=== PATIENT | male | born 1945 | race Caucasian/White ===

== ENCOUNTER 2022-01-27 09:39 | Observation (INO) ==
[2022-01-27] MEDS ORDERED: Perflutren Lipid Microsphere 1.3 ML in 0.9 % Sodium Chloride 8.7 ML IVP PRN (15:41)
[2022-01-27] MEDS ORDERED: MOM Conc 10 ML UD.LIQ PO PRN (15:46)
[2022-01-27] MEDS ORDERED: Naloxone 0.4 MG/ML INJ IVP PRN (15:46)
[2022-01-27] MEDS ORDERED: Melatonin 3 MG TABLET PO PRN (15:46)
[2022-01-27] MEDS ORDERED: Ondansetron ODT 4 MG TAB.RAPDIS SL PRN (15:46)
[2022-01-27] MEDS: Gabapentin 400 MG CAPSULE PO SCH (20:02)
[2022-01-28 02:17] LABS: Basophils % 0.7 %; Eosinophils % 1.4 %; Hematocrit 38.7 % (37.5-50.1); Hemoglobin 13.2 g/dL (12.9-16.9); Immature Granulocytes % 0.7 % (0-4); Lymphocytes # 1.1 K/mcL (0.6-4.6); Lymphocytes % 38.8 %; Mean Corpuscular HGB Conc 34.1 g/dL (31.6-35.5); Mean Corpuscular Hemoglobin 32.2 pg (28.0-33.3); Mean Corpuscular Volume 94.4 fL (83.0-100.0); Mean Platelet Volume 9.4 fL (9.4-12.4); Monocytes # 0.3 K/mcL (0.0-1.3); Monocytes % 11.4 %; Neutrophils # 1.4 K/mcL (1.6-8.9); Platelet Count 205 K/mcL (140-400); Red Cell Distribution Width 14.5 % (11.5-14.5); White Blood Count 2.9 K/mcL (4.3-11.1)
[2022-01-28 02:36] LABS: Alanine Aminotransferase 21 Units/L (7-52); Albumin 3.7 g/dL (3.5-5.7); Albumin/Globulin Ratio 1.8 (1.1-2.2); Alkaline Phosphatase 57 Units/L (34-104); Aspartate Amino Transferase 18 Units/L (13-39); BUN/Creatinine Ratio 7 (6-26); Bilirubin,Total 1.1 mg/dL (0.3-1.0); Blood Urea Nitrogen 9 mg/dL (8-23); Carbon Dioxide 26 mEq/L (23-29); Chloride 105 mEq/L (98-107); Chol/HDL Ratio 3.2 (0-4.9); Cholesterol 92 mg/dL (< 200); Globulin 2.1 g/dL (2.4-3.5); Glucose 99 mg/dL (70-105); HDL Cholesterol 29 mg/dL (40-59); LDL Cholesterol,Calculated 37 mg/dL (< 100); Osmolality,Calculated 289 (280-300); Potassium 3.7 mEq/L (3.5-5.1); Sodium 140 mEq/L (136-145); Total Protein 5.8 g/dL (6.4-8.9); Triglycerides 128 mg/dL (< 150); eGFR For African Americans > 60 (> 60); eGFR For Non-African Americans 57 (> 60)
[2022-01-28] MEDS ORDERED: *HR* Enoxaparin 40 MG/0.4 ML SYRINGE SQ SCH (06:00)
[2022-01-28] MEDS: Gabapentin 400 MG CAPSULE PO SCH ×2 (07:45→16:18)
[2022-01-28] MEDS ORDERED: Aspirin Enteric Coated 81 MG Tablet PO SCH (09:00)
[2022-01-28 11:03] LABS: Chol/HDL Ratio 3.3 (0-4.9)
[2022-01-28 11:15] LABS: Thyroid Stimulating Hormone 1.799 mcIU/mL (0.340-5.600)
[2022-01-28 11:27] LABS: Folate 10.2 ng/mL (3.0-16.0)
[2022-01-28 11:30] LABS: Estimated Average Glucose 117 mg/dl; Hemoglobin A1C 5.7 %
[2022-01-28 15:16] VITALS: BP 153/74; PULSE 67; TEMP 98.2; O2SAT 95
== END 2022-01-28 17:00 | disposition home or self-care (01) ==
LOC: 3BNU → SUATTDRO 13:56
PROVIDERS: ADMIT Student in an Organized Health Care Education/Training Program; ATTEND Registered Nurse

== ENCOUNTER 2022-01-29 09:36 | Inpatient (IN) ==
[2022-01-29] MEDS ORDERED: Ondansetron ODT 4 MG TAB.RAPDIS SL PRN (15:10)
[2022-01-29] MEDS ORDERED: Naloxone 0.4 MG/ML INJ IVP PRN (15:10)
[2022-01-29] MEDS ORDERED: Melatonin 3 MG TABLET PO PRN (15:10)
[2022-01-29] MEDS: Gabapentin 300 MG CAPSULE PO SCH (20:27)
[2022-01-29] MEDS ORDERED: NON-FORMULARY MEDICATION 1 EACH EACH (Omega-3/Dha/Epa/Fish Oil [Fish Oil 1,000 Mg Softgel] PO SCH (21:00)
[2022-01-30 02:05] LABS: Basophils % 0.7 %; Hematocrit 41.6 % (37.5-50.1); Hemoglobin 14.1 g/dL (12.9-16.9); Immature Granulocytes % 0.5 % (0-4); Lymphocytes # 1.4 K/mcL (0.6-4.6); Lymphocytes % 34.4 %; Mean Corpuscular HGB Conc 33.9 g/dL (31.6-35.5); Mean Corpuscular Hemoglobin 32.2 pg (28.0-33.3); Mean Platelet Volume 9.2 fL (9.4-12.4); Monocytes # 0.5 K/mcL (0.0-1.3); Monocytes % 10.7 %; Neutrophils # 2.2 K/mcL (1.6-8.9); Platelet Count 230 K/mcL (140-400); Red Blood Count 4.38 M/mcL (4.19-5.50); Red Cell Distribution Width 14.3 % (11.5-14.5); Segmented Neutrophils % 52.7 %; White Blood Count 4.2 K/mcL (4.3-11.1)
[2022-01-30 02:26] LABS: BUN/Creatinine Ratio 13 (6-26); Blood Urea Nitrogen 15 mg/dL (8-23); Calcium 9.1 mg/dL (8.6-10.3); Carbon Dioxide 28 mEq/L (23-29); Chloride 104 mEq/L (98-107); Chol/HDL Ratio 3.8 (0-4.9); Cholesterol 117 mg/dL (< 200); Glucose 100 mg/dL (70-105); HDL Cholesterol 31 mg/dL (40-59); LDL Cholesterol,Calculated 49 mg/dL (< 100); Magnesium 1.9 mg/dL (1.6-2.6); Osmolality,Calculated 289 (280-300); Potassium 3.5 mEq/L (3.5-5.1); Sodium 139 mEq/L (136-145); Triglycerides 184 mg/dL (< 150); eGFR For African Americans > 60 (> 60); eGFR For Non-African Americans 60 (> 60)
[2022-01-30] MEDS: *HR* Enoxaparin 40 MG/0.4 ML SYRINGE SQ SCH (05:32)
[2022-01-30] MEDS: Gabapentin 300 MG CAPSULE PO SCH ×2 (08:18→20:09)
[2022-01-30] MEDS: allopurinoL 100 MG TABLET PO SCH (08:18)
[2022-01-30] MEDS: Aspirin Enteric Coated 81 MG Tablet PO SCH (08:19)
[2022-01-30] MEDS: Cyanocobalamin (B-12) 1,000 MCG TABLET PO SCH (08:19)
[2022-01-30] MEDS: Metoprolol XL (24 HR) Succ 50 MG TAB.ER.24H PO SCH ×2 (08:20→13:36)
[2022-01-31 01:11] LABS: Basophils % 1.2 %; Eosinophils % 0.9 %; Hematocrit 39.1 % (37.5-50.1); Hemoglobin 13.3 g/dL (12.9-16.9); Immature Granulocytes % 0.6 % (0-4); Lymphocytes # 1.1 K/mcL (0.6-4.6); Lymphocytes % 32.8 %; Mean Platelet Volume 9.2 fL (9.4-12.4); Monocytes # 0.5 K/mcL (0.0-1.3); Monocytes % 14.5 %; Neutrophils # 1.7 K/mcL (1.6-8.9); Platelet Count 223 K/mcL (140-400); Red Blood Count 4.16 M/mcL (4.19-5.50); Red Cell Distribution Width 14.1 % (11.5-14.5); White Blood Count 3.3 K/mcL (4.3-11.1)
[2022-01-31 01:32] LABS: BUN/Creatinine Ratio 11 (6-26); Blood Urea Nitrogen 14 mg/dL (8-23); Carbon Dioxide 27 mEq/L (23-29); Chloride 104 mEq/L (98-107); Glucose 101 mg/dL (70-105); Osmolality,Calculated 287 (280-300); Potassium 3.6 mEq/L (3.5-5.1); Sodium 138 mEq/L (136-145); eGFR For African Americans > 60 (> 60); eGFR For Non-African Americans 55 (> 60)
[2022-01-31] MEDS: *HR* Enoxaparin 40 MG/0.4 ML SYRINGE SQ SCH (05:48)
[2022-01-31] MEDS: Gabapentin 300 MG CAPSULE PO SCH ×2 (10:11→21:44)
[2022-01-31] MEDS: allopurinoL 100 MG TABLET PO SCH (10:11)
[2022-01-31] MEDS: Aspirin Enteric Coated 81 MG Tablet PO SCH (10:12)
[2022-01-31] MEDS: Metoprolol XL (24 HR) Succ 50 MG TAB.ER.24H PO SCH (10:12)
[2022-01-31] MEDS: Cyanocobalamin (B-12) 1,000 MCG TABLET PO SCH (10:12)
[2022-02-01] MEDS: *HR* Enoxaparin 40 MG/0.4 ML SYRINGE SQ SCH (05:43)
[2022-02-01 06:59] VITALS: BP 135/71; PULSE 63; TEMP 97.8; O2SAT 93
[2022-02-01] MEDS: Aspirin Enteric Coated 81 MG Tablet PO SCH (09:23)
[2022-02-01] MEDS: Cyanocobalamin (B-12) 1,000 MCG TABLET PO SCH (09:24)
[2022-02-01] MEDS: allopurinoL 100 MG TABLET PO SCH (09:24)
[2022-02-01] MEDS: Metoprolol XL (24 HR) Succ 50 MG TAB.ER.24H PO SCH (09:24)
[2022-02-01] MEDS: Gabapentin 300 MG CAPSULE PO SCH (09:24)
== END 2022-02-01 13:13 | disposition home or self-care (01) | DRG 149 ==
LOC: 3BNU → SUATTDRO 01-30 14:52
PROVIDERS: ADMIT Student in an Organized Health Care Education/Training Program; ATTEND Internal Medicine

== ENCOUNTER 2022-05-09 10:42 | Observation (INO) ==
[2022-05-09 11:52] LABS: Basophils % 0.5 %; Hematocrit 40.8 % (37.5-50.1); Hemoglobin 13.5 g/dL (12.9-16.9); Immature Granulocytes % 0.7 % (0-4); Lymphocytes # 0.9 K/mcL (0.6-4.6); Lymphocytes % 19.6 %; Mean Corpuscular HGB Conc 33.1 g/dL (31.6-35.5); Mean Corpuscular Hemoglobin 31.3 pg (28.0-33.3); Mean Corpuscular Volume 94.7 fL (83.0-100.0); Mean Platelet Volume 9.6 fL (9.4-12.4); Monocytes # 0.7 K/mcL (0.0-1.3); Monocytes % 15.5 %; Neutrophils # 2.8 K/mcL (1.6-8.9); Platelet Count 222 K/mcL (140-400); Red Blood Count 4.31 M/mcL (4.19-5.50); Red Cell Distribution Width 15.1 % (11.5-14.5); Segmented Neutrophils % 63.7 %; White Blood Count 4.3 K/mcL (4.3-11.1)
[2022-05-09 12:09] LABS: Calcium 8.9 mg/dL (8.6-10.3); Potassium 3.8 mEq/L (3.5-5.1)
[2022-05-09 12:22] LABS: Thyroid Stimulating Hormone 1.559 mcIU/mL (0.340-5.600)
[2022-05-09] MEDS ORDERED: 0.9 % Sodium Chloride 1,000 ML IVC ONE (12:28)
[2022-05-09 12:37] LABS: Bilirubin,Urine Negative (Negative); Blood,Urine Small (Negative); Clarity,Urine Turbid (Clear); Color,Urine Yellow (Yellow); Glucose,Urine (UA) Normal (Normal); Ketones,Urine Negative (Negative); Leukocyte Esterase,Urine Negative (Negative); Mucus,Urine Few per lpf (None-Few); Nitrite,Urine Negative (Negative); PH,Urine 6.5 pH Units (5.0-8.0); Protein,Urine 70 mg/dL (Neg-Trace); RBC,Urine 30-50 per hpf (0-3); Specific Gravity,Urine 1.029 (1.010-1.025); Squamous Epithelial Cell,Urine Few per hpf (None-Few)
[2022-05-09] MEDS ORDERED: Melatonin 3 MG TABLET PO PRN (16:04)
[2022-05-09] MEDS ORDERED: Naloxone 0.4 MG/ML INJ IVP PRN (16:04)
[2022-05-09] MEDS ORDERED: Acetaminophen 325 MG TABLET PO PRN (17:06)
[2022-05-09] MEDS: cefTRIAXone 2,000 MG in 0.9 % Sodium Chloride 20 ML IVP STA ×2 (17:19→18:13)
[2022-05-09] MEDS: Azithromycin 500 MG in 0.9 % Sodium Chloride 250 ML IVPB ONE ×2 (17:19→18:11)
[2022-05-09] MEDS ORDERED: cefTRIAXone 2,000 MG in 0.9 % Sodium Chloride 20 ML IVP ONE (18:00)
[2022-05-09] MEDS ORDERED: Azithromycin 500 MG in 0.9 % Sodium Chloride 250 ML IVPB ONE (18:00)
[2022-05-09] MEDS: 0.9 % Sodium Chloride 1,000 ML IVC SCH (18:34)
[2022-05-09] MEDS: Gabapentin 300 MG CAPSULE PO SCH (20:36)
[2022-05-10 02:49] LABS: Basophils % 0.9 %; Eosinophils % 0.4 %; Hematocrit 35.1 % (37.5-50.1); Immature Granulocytes % 0.9 % (0-4); Mean Corpuscular HGB Conc 32.5 g/dL (31.6-35.5); Mean Corpuscular Hemoglobin 30.9 pg (28.0-33.3); Mean Corpuscular Volume 95.1 fL (83.0-100.0); Mean Platelet Volume 9.6 fL (9.4-12.4); Monocytes # 0.4 K/mcL (0.0-1.3); Monocytes % 15.7 %; Neutrophils # 0.9 K/mcL (1.6-8.9); Platelet Count 191 K/mcL (140-400); Red Blood Count 3.69 M/mcL (4.19-5.50); Segmented Neutrophils % 39.1 %; White Blood Count 2.3 K/mcL (4.3-11.1)
[2022-05-10 02:58] LABS: Calcium 7.9 mg/dL (8.6-10.3); Potassium 3.8 mEq/L (3.5-5.1)
[2022-05-10 03:00] LABS: Hemoglobin 11.4 g/dL (12.9-16.9)
[2022-05-10] MEDS: 0.9 % Sodium Chloride 1,000 ML IVC SCH ×2 (08:22→21:19)
[2022-05-10] MEDS: Azithromycin 250 MG TABLET PO SCH (08:25)
[2022-05-10] MEDS: Gabapentin 300 MG CAPSULE PO SCH ×2 (08:26→21:12)
[2022-05-10] MEDS: cefTRIAXone 1,000 MG in 0.9 % Sodium Chloride 10 ML IVP SCH (08:27)
[2022-05-10] MEDS: *HR* Heparin 5,000 UNIT/ML VIAL SQ SCH ×3 (08:30→21:13)
[2022-05-11 01:33] LABS: Basophils % 1.1 %; Eosinophils % 1.7 %; Hemoglobin 11.9 g/dL (12.9-16.9); Immature Granulocytes % 0.6 % (0-4); Lymphocytes % 63.5 %; Mean Corpuscular HGB Conc 33.1 g/dL (31.6-35.5); Mean Corpuscular Hemoglobin 31.2 pg (28.0-33.3); Mean Corpuscular Volume 94.2 fL (83.0-100.0); Mean Platelet Volume 9.4 fL (9.4-12.4); Monocytes # 0.3 K/mcL (0.0-1.3); Neutrophils # 0.3 K/mcL (1.6-8.9); Platelet Count 183 K/mcL (140-400); Red Blood Count 3.82 M/mcL (4.19-5.50); Red Cell Distribution Width 15.1 % (11.5-14.5); Segmented Neutrophils % 17.1 %; White Blood Count 1.8 K/mcL (4.3-11.1)
[2022-05-11 01:34] LABS: Lymphocytes # 1.1 K/mcL (0.6-4.6)
[2022-05-11 01:51] LABS: Calcium 8.2 mg/dL (8.6-10.3); Magnesium 1.9 mg/dL (1.6-2.6); Phosphorous 3.4 mg/dL (2.7-4.5)
[2022-05-11] MEDS: *HR* Heparin 5,000 UNIT/ML VIAL SQ SCH (06:17)
[2022-05-11 07:09] VITALS: BP 151/88; PULSE 68; TEMP 97.6; O2SAT 93
[2022-05-11] MEDS: Azithromycin 250 MG TABLET PO SCH (08:45)
[2022-05-11] MEDS: cefTRIAXone 1,000 MG in 0.9 % Sodium Chloride 10 ML IVP SCH (08:45)
[2022-05-11] MEDS: Gabapentin 300 MG CAPSULE PO SCH (08:47)
[2022-05-11] MEDS ORDERED: Cyanocobalamin (B-12) 1,000 MCG TABLET PO SCH (09:00)
[2022-05-11] MEDS ORDERED: Aspirin Enteric Coated 81 MG Tablet PO SCH (09:00)
[2022-05-11] MEDS ORDERED: Metoprolol XL (24 HR) Succ 50 MG TAB.ER.24H PO SCH (09:00)
[2022-05-11] MEDS ORDERED: allopurinoL 100 MG TABLET PO SCH (09:00)
== END 2022-05-11 11:12 | disposition home or self-care (01) ==
LOC: EMEROOARM 10:42 → 3BNU 10:42 → SUATTDRO 15:55 → 3BNU 17:03
PROVIDERS: ADMIT Internal Medicine; ATTEND Internal Medicine